=== PATIENT | female | born 1975 | race Caucasian/White ===

== ENCOUNTER 2017-07-03 10:45 | Day surgery (SDC) | payer MEDICAID ==
[2014-06-08 06:34] VITALS: BMI 29.5
[2017-07-03] MEDS ORDERED: Lactated Ringer's 500 ML IV ONE (11:07)
[2017-07-03 12:44] VITALS: O2SAT 100
[2017-07-03] MEDS ORDERED: Propofol 10 mg/ml Inj (20 ML) ONE (13:57)
[2017-07-03 14:23] VITALS: TEMP 97
[2017-07-03 14:44] VITALS: BP 105/67; PULSE 80; RESP 18
== END 2017-07-03 14:46 | disposition home or self-care (01) ==
LOC: H.ENDO 10:45
PROVIDERS: ATTEND Internal Medicine Gastroenterology
DX: R10.30 Lower abdominal pain, unspecified (principal); R19.4 Change in bowel habit; K57.30 Diverticulosis of large intestine without perforation or abscess without bleeding

== ENCOUNTER 2018-03-18 11:30 | Emergency (ER) | payer MEDICAID ==
[2018-03-18 11:44] VITALS: BMI 22.3
[2018-03-18 11:58] VITALS: RESP 16
[2018-03-18 13:11] LABS: BASO % 0.3 % (0.0-2.0); EOS # 0.1 K/uL (0.0-0.7); EOS % 1.9 % (0.0-4.0); LYMPH # 1.3 K/uL (1.0-4.3); LYMPH % 16.8 % (20.0-40.0); MEAN CELL VOLUME 77.9 fl (81.0-99.0); MEAN CORPUSCULAR HGB CONC 32.2 g/dL (33.0-37.0); MEAN PLATELET VOLUME 9.8 fl (7.2-11.7); MONO # 0.6 K/uL (0.0-0.8); MONO % 7.6 % (0.0-10.0); NEUT # 5.6 K/uL (1.8-7.0); NEUT % 73.4 % (50.0-75.0); NRBC % 0.1 % (0.0-0.0); RBC 4.8 Mil/uL (3.80-5.20); RED CELL DISTRIBUTION WIDTH 14.7 % (11.5-14.5); WHITE BLOOD COUNT 7.7 K/uL (4.8-10.8)
[2018-03-18 13:20] LABS: ALB/GLOB RATIO 1.2 (1.0-2.1); ALBUMIN 4.2 g/dL (3.5-5.0); ALT/SGPT 39 U/L (9-52); AST/SGOT 26 U/L (14-36); BLOOD UREA NITROGEN 11 mg/dl (7-17); CALCIUM 9.1 mg/dL (8.4-10.2); GFR AFRICAN-AMERICAN > 60; GFR NON-AFRICAN AMERICAN > 60
--- NOTE | 2018-03-18 13:31 | ED PDOC ---
HPI: Chest Pain Chief Complaint (Provider): chest pain History Per: Patient History/Exam Limitations: no limitations Onset/Duration Of Symptoms: Intermittent Episodes Current Symptoms Are (Timing): Better Quality: Pressure Associated Symptoms: denies: Nausea, Dyspnea, Diaphoresis, Syncope Modifying Factors: None Exacerbating Factors: None Alleviating Factors: None - Risk Factors PE Risk Factors: Neg: Previous DVT, Previous PE TAD Risk Factors: Neg: Hypertension <Amanda Edmond - Last Filed: 03/18/18 17:51> <Luis Rizzo III - Last Filed: 03/18/18 18:01> Time Seen by Provider: 03/18/18 12:26 Chief Complaint (Nursing): Chest Pain Additional Complaint(s): 43 yr old F with no significant PMHx presents to ED with complaint of acute onset chest pain which occurred this morning at 7am while at rest. Patient reports the pain was pressure like, 10/10, lasted 4 secs, resolved on its own, then recurred multiple times. She was able to walk her kids to school and had breakfast (coffee and crackers), but the pain persisted so she decided to come to the ED. She denies SOB, palpitations, nausea, vomiting, diarrhea, weakness, dizziness, visual changes or syncope. No aggravating or alleviating factors. 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 Patient reports a similar episode of pain occurred 9yrs ago with negative cardiac workup at another hospital in [place]. PMD: Shaik Tamayo PMHx: denies SurgHx: 4 c-sections (most recent in 2011), RLE varicose vein procedure on FMHx: mother from cardiac arrest at 55yrs old, father from leukemia at 27 yrs old, siblings all healthy SocHx: denies tobacco/Etoh or drugs Medications: Wyola 3 supplement Allergies: NKDA (Amanda Edmond) Supervising Attending Note <Amanda Edmond - Last Filed: 03/18/18 17:51> - Attestation: I have personally seen and examined this patient.: Yes I have fully participated in the care of the patient.: Yes I have reviewed all pertinent clinical information: Yes <Luis Rizzo III - Last Filed: 03/18/18 18:01> - Notes: Notes:: pt seen/examined w resident. Denies risk factors. HEART score 1 Trop neg, symptoms ongoing since this morning. CTA chest neg for PE Repeat trop neg Explained need for followup in ecuadorean and indications for return to ED. (Luis Rizzo III) Past Medical History - Medical History PMH: No Chronic Diseases Denies: Chronic Kidney Disease - Surgical History Surgical History: (x 4) - Family History Family History: States: Other Other Family History: mother of cardiac arrest at 55 yrs old, father of leukemia at 27 yrs old - Living Arrangements Living Arrangements: With Family - Social History Current smoker - smoking cessation education provided: No Ex-Smoker (has not smoked in the last 12 months): No Alcohol: None Drugs: Denies <Amanda Edmond - Last Filed: 03/18/18 17:51> <Luis Rizzo III - Last Filed: 03/18/18 18:01> Vital Signs: Last Vital Signs Temp 97 F L 03/18/18 11:54 Pulse 86 03/18/18 11:54 Resp 16 03/18/18 11:54 BP 122/80 03/18/18 11:54 Pulse Ox 100 03/18/18 17:51 - Home Medications Home Medications: Ambulatory Orders Medication Instructions Recorded Naproxen 500 mg PO BID PRN #14 tab 03/18/18 - Allergies Allergies/Adverse Reactions: Allergies Allergy/AdvReac Type Severity Reaction Status Date / Time No Known Allergies Allergy Verified 03/18/18 11:54 KENRICK Risk Score for UA/NSTEMI - KENRICK Risk Score Age > 64: NO 3 or more CAD Risk Factors: NO Known CAD (Stenosis greater than 50%): NO Aspirin use in past 7 days: NO Severe Angina: NO EKG ST changes greater than 0.5mm: NO Positive Cardiac Marker: NO KENRICK Score: 0 Risk %: 5% <Amanda Edmond - Last Filed: 03/18/18 17:51> Wells Criteria for PE - Wells Criteria for Pulmonary Embolism Clinical Signs and Symptoms of DVT: No P.E is #1 Diagnosis, or Equally Likely: No Heart Rate >100: No Immobilization at least 3 days;Surgery previous 4 weeks: No Previous, objectively diagnosed PE or DVT: No Hemoptysis: No Malignancy w/treatment within 6 months, or palliative: No Total Score: 0 <Amanda Edmond - Last Filed: 03/18/18 17:51> Review of Systems Constitutional: Negative for: Fever, Chills, Weakness Eyes: Negative for: Vision Change ENT: Negative for: Mouth Pain, Throat Pain Cardiovascular: Positive for: Chest Pain. Negative for: Palpitations, Light Headedness Respiratory: Negative for: Cough, Shortness of Breath, Hemoptysis, SOB with Exertion, Wheezing Gastrointestinal: Negative for: Nausea, Vomiting, Diarrhea Genitourinary Female: Negative for: Dysuria Musculoskeletal: Negative for: Neck Pain, Shoulder Pain, Arm Pain Skin: Negative for: Rash, Lesions Neurological: Negative for: Weakness, Confusion, Dizziness Psych: Negative for: Anxiety <Amanda Edmond - Last Filed: 03/18/18 17:51> Physical Exam - Reviewed Vital Signs Reviewed: Yes - Physical Exam Appears: Positive for: No Acute Distress Head Exam: Positive for: ATRAUMATIC, NORMOCEPHALIC Skin: Positive for: Normal Color, Warm, Dry Eye Exam: Positive for: EOMI, PERRL ENT: Negative for: Nasal Congestion, Pharyngeal Erythema Neck: Negative for: Painless ROM, Supple Cardiovascular/Chest: Positive for: Regular Rate, Rhythm. Negative for: Gallop , Murmur, Friction Rub Respiratory: Positive for: Normal Breath Sounds Pulses-Carotid (L): 2+ Pulses-Carotid (R): 2+ Pulses-Dorsalis Pedis (L): 2+ Pulses-Dorsalis Pedis (R): 2+ Pulses-Post. Tibialis (L): 2+ Pulses-Post. Tibialis (R): 2+ Pulses-Radial (L): 2+ Pulses-Radial (R): 2+ Gastrointestinal/Abdominal: Positive for: Bowel Sounds (present), Soft. Negative for: Tenderness, Guarding Extremity: Positive for: Normal ROM. Negative for: Tenderness, Pedal Edema, Calf Tenderness, Swelling Neurologic/Psych: Positive for: Alert, panel cutter II-XII, Oriented, Mood/Affect (full range), Gait (normal) <Amanda Edmond - Last Filed: 03/18/18 17:51> - Laboratory Results Result Diagrams: 03/18/18 13:00 03/18/18 13:00 Urine POC: Negative - ECG ECG: Positive for: Viewed By Me (sinus rhythm at rate of 76bpm, normal NV interval, no ST-T changes) O2 Sat by Pulse Oximetry: 100 - Progress Condition: Unchanged <Amanda Edmond - Last Filed: 03/18/18 17:51> - Laboratory Results Result Diagrams: 03/18/18 13:00 03/18/18 13:00 <Luis Rizzo III - Last Filed: 03/18/18 18:01> - Progress ED Course And Treament: -Troponin negative, Upreg negative, CBC and CMP within normal limits, pro-BNP within normal limits -CXR negative for active disease, D-Dimer elevated at 433, CT Chest Angio PE protocol negative for PE, repeat EKG with normal sinus rhythm at 70 bpm, normal NV interval, no ST-T changes -HEART score 1 (Amanda Edmond) Disposition - Patient ED Disposition Is Patient to be Admitted: No Counseled Patient/Family Regarding: Studies Performed, Need For Followup, Rx Given - Disposition Disposition: Routine/Home Disposition Time: 17:43 - POA Present On Arrival: None <Amanda Edmond - Last Filed: 03/18/18 17:51> <Luis Rizzo III - Last Filed: 03/18/18 18:01> - Clinical Impression Clinical Impression: Chest pain - Disposition Referrals: Shaik Tamayo MD [Family Provider] - Condition: STABLE Additional Instructions: Follow up with you PMD Dr. Pizarro within 1 week. Return to ED if chest pain persists or worsens or any other symptoms occur. Prescriptions: Naproxen 500 mg PO BID PRN #14 tab PRN Reason: Pain, Moderate (4-7) Instructions: Chest Pain (DC) Forms: [facility] (H[place]er), [facility] (Ecuadorean) Print Language: LATVIAN
[2018-03-18 13:32] LABS: B-TYPE NATRIURETIC PEPTIDE 22.4 pg/ml (0-450)
--- NOTE | 2018-03-18 14:12 | RAD ---
HISTORY: L chest pain COMPARISON: No prior. TECHNIQUE: Chest PA and lateral FINDINGS: LUNGS: No active pulmonary disease. PLEURA: No significant pleural effusion identified. No pneumothorax apparent. CARDIOVASCULAR: Normal. OSSEOUS STRUCTURES: No significant abnormalities. VISUALIZED UPPER ABDOMEN: Normal. OTHER FINDINGS: None. IMPRESSION: No active disease.
[2018-03-18] MEDS ORDERED: Sodium Chloride 0.9% 100 ML ONE (16:02)
[2018-03-18] MEDS ORDERED: Iodixanol 320 MG/ML 100 ML BOTTLE IV ONE (16:02)
--- NOTE | 2018-03-18 16:47 | CT ---
PROCEDURE: CT Chest with contrast (Pulmonary Angiogram) HISTORY: chest pain, elevated D-dimer COMPARISON: None available. TECHNIQUE: Axial computed tomography images were obtained of the chest in the pulmonary arterial phase of enhancement. Coronal and sagittal reformatted images were created and reviewed. Intravenous contrast dose: 80 mL Visipaque 320 Radiation dose: Total exam DLP = 162.43 mGy-cm. This CT exam was performed using one or more of the following dose reduction techniques: Automated exposure control, adjustment of the mA and/or kV according to patient size, and/or use of iterative reconstruction technique. FINDINGS: PULMONARY ARTERIES: Unremarkable. No pulmonary embolism. AORTA: No acute findings. No thoracic aortic aneurysm. LUNGS: Unremarkable. No nodule, mass or pulmonary consolidation. PLEURAL SPACES: Unremarkable. No effusion or pneuomothorax. HEART: Unremarkable. No cardiomegaly. No significant pericardial effusion. LYMPH NODES: No lymphadenopathy. BONES, CHEST WALL: Unremarkable. No fracture or destructive lesion OTHER FINDINGS: Unremarkable. IMPRESSION: Unremarkable CT pulmonary angiogram. No pulmonary embolus.
[2018-03-18 18:14] VITALS: BP 134/79; PULSE 76; TEMP 98; O2SAT 98
--- NOTE | 2018-03-19 22:56 | CARD ---
APPROVED REPORT EKG Measurement Heart [id number] MD 130P76 [id number] <Conclusion> Normal sinus rhythm Normal ECG
--- NOTE | 2018-03-19 22:59 | CARD ---
APPROVED REPORT EKG Measurement Heart [id number] SD 126P77 [id number] <Conclusion> Normal sinus rhythm Normal ECG
== END 2018-03-18 18:15 | disposition home or self-care (01) ==
LOC: H.ER 11:30
DX: R07.89 Other chest pain (principal)
CPT/HCPCS: 71046; 71275; 80053; 81025; 83880; 84484; 85025; 85378; 93005; 96374; 99284; J1885; Q9967